=== PATIENT | female | born 1965 ===

== ENCOUNTER 2020-09-17 06:34 | Day surgery (SDC) | payer OTHER ==
[~2020-09-17 06:34] MED LIST: CELEBREX200MG PO; FENOFIBRATE145 MG PO; FOLIC ACID0.8 M1 PO; LEVO-T88 MCG PO; MULTIPLE VITAM1 EAC2 PO
== END 2020-09-17 15:40 | disposition home or self-care (01) ==
LOC: CIR.AMB 06:34
PROVIDERS: ATTEND Orthopaedic Surgery Hand Surgery
DX: M18.11 Unilateral primary osteoarthritis of first carpometacarpal joint, right hand (principal); Z20.822 Contact with and (suspected) exposure to COVID-19